=== PATIENT | female | born 1985 | race Caucasian/White ===

== ENCOUNTER 2016-08-20 03:25 | Inpatient (IN) | payer OTHER ==
[2016-08-20] MEDS ORDERED: Promethazine INJ(RESTRICTED)* 25 MG/ML 1 ML VIAL ONE (03:54)
[2016-08-20] MEDS ORDERED: Nalbuphine* 20 MG/ML 1 ML VIAL ONE (03:54)
[2016-08-20] MEDS ORDERED: fentaNYL* 50 MCG/ML 2 ML VIAL (100 MCG VIAL) ONE (04:18)
[2016-08-20] MEDS ORDERED: Nalbuphine* 20 MG/ML 1 ML VIAL IV PRN ×2 (04:19→04:35)
[2016-08-20] MEDS ORDERED: Promethazine INJ(RESTRICTED)* 25 MG/ML 1 ML VIAL IV PRN (04:19)
[2016-08-20 04:27] LABS: Hematocrit 42 % (35-47); Hemoglobin 13.7 g/dl (12.0-16.0); Mean Corpuscular HGB Conc 33 g/dl (31-36); Mean Corpuscular Hemoglobin 29 pg (27-31); Mean Corpuscular Volume 87 fL (80-97); Mean Platelet Volume 8 um3 (7.4-10.4); Red Blood Count 4.79 10^6/ul (4.0-5.4); Red Cell Distribution Width 14 % (10.5-15); White Blood Count 12.4 10^3/ul (3.5-10.8)
[2016-08-20] MEDS ORDERED: Ondansetron INJ* 2 MG/ML VIAL IV PRN (04:35)
[2016-08-20] MEDS ORDERED: Naloxone* 0.4 MG/ML 1 ML VIAL IV PRN (04:35)
[2016-08-20] MEDS ORDERED: Oxytocin in LR* 20 UNITS/1,000 ML BAG IVPB SCH ×2 (05:00→06:00)
[2016-08-20] MEDS ORDERED: Witch Hazel PAD* JAR TOPICAL PRN (05:58)
[2016-08-20] MEDS ORDERED: Dibucaine 1% 28.35 GM TUBE PR PRN (05:58)
[2016-08-20] MEDS ORDERED: Glycerin ADULT SUPP PR PRN (05:58)
[2016-08-20] MEDS ORDERED: oxyCODONE/Acetamin 5/325 MG* TAB PO PRN (05:58)
[2016-08-20] MEDS: Levothyroxine TAB* 100 MCG TAB PO SCH (08:04)
[2016-08-20] MEDS ORDERED: Simethicone CHEW TAB* 80 MG PO SCH (08:30)
[2016-08-20] MEDS: Docusate CAP* 100 MG PO SCH ×3 (09:55→20:15)
[2016-08-20] MEDS: Ibuprofen TAB* 600 MG PO PRN (20:12)
[2016-08-21] MEDS: Levothyroxine TAB* 75 MCG TAB PO SCH (06:49)
[2016-08-21] MEDS: Ibuprofen TAB* 600 MG PO PRN ×3 (06:49→20:22)
[2016-08-21] MEDS: Levothyroxine TAB* 100 MCG TAB PO SCH (06:49)
[2016-08-21] MEDS ORDERED: Ferrous Gluconate TAB* 324 MG TAB PO SCH (09:00)
[2016-08-21 10:05] LABS: Hematocrit 35 % (35-47); Hemoglobin 11.4 g/dl (12.0-16.0); Mean Corpuscular HGB Conc 33 g/dl (31-36); Mean Corpuscular Hemoglobin 29 pg (27-31); Mean Corpuscular Volume 88 fL (80-97); Mean Platelet Volume 8 um3 (7.4-10.4); Red Blood Count 3.94 10^6/ul (4.0-5.4); Red Cell Distribution Width 14 % (10.5-15); White Blood Count 9.7 10^3/ul (3.5-10.8)
[2016-08-21] MEDS: Docusate CAP* 100 MG PO SCH ×3 (10:26→20:22)
[2016-08-21] MEDS: Acetaminophen TAB* 325 MG PO PRN ×3 (10:30→23:12)
[2016-08-22] MEDS: Ibuprofen TAB* 600 MG PO PRN ×2 (04:04→10:42)
[2016-08-22] MEDS: Levothyroxine TAB* 100 MCG TAB PO SCH (06:01)
[2016-08-22] MEDS: Levothyroxine TAB* 75 MCG TAB PO SCH (06:01)
[2016-08-22 07:52] VITALS: BP 122/76
[2016-08-22] MEDS: Docusate CAP* 100 MG PO SCH (10:42)
== END 2016-08-22 11:32 | disposition home or self-care (01) | DRG 560 ==
LOC: MCHOBOUT 03:25 → MCHOB 03:35
PROVIDERS: ADMIT Obstetrics & Gynecology; ATTEND Obstetrics & Gynecology
PROC: 10E0XZZ Delivery of Products of Conception, External Approach (ICD-10-PCS; principal; 2016-08-20)
PROC: 10907ZC Drainage of Amniotic Fluid, Therapeutic from Products of Conception, Via Natural or Artificial Opening (ICD-10-PCS; 2016-08-20)
DX: O48.0 Post-term pregnancy (principal); O99.344 Other mental disorders complicating childbirth; E03.9 Hypothyroidism, unspecified; O99.824 Streptococcus B carrier state complicating childbirth; F31.9 Bipolar disorder, unspecified; O99.284 Endocrine, nutritional and metabolic diseases complicating childbirth; Z3A.40 40 weeks gestation of pregnancy; Z37.0 Single live birth
CPT/HCPCS: 36415; 85025; 86850; 86900; 86901; A9270-GY; J2300; J2550; J3010

== ENCOUNTER 2017-08-19 11:00 | Emergency (ER) | payer OTHER ==
--- OUTSIDE RECORDS SUMMARY | 2017-08-19 11:07 | XMS REPORT ---
:1985 External Reference #:[id number] Author Organization [facility] Address [address] [address] Phone [phone] Care Team Providers Name Role Phone Jose Hutton MD Primary Care Physician Unavailable Payers Type Date Identification Numbers Payment Provider Subscriber Commercial Policy Number: [id number] [employer] Maria Guadalupe Gan PayID: [id number] [address] [address] [place] [address] Problems Date Description Provider Status Onset: 03/11/2010 Moderate persistent asthma Bossman Forrester NP Active Onset: 08/03/2010 Hypothyroidism Jose Hutton Active GingerFACP Onset: 05/09/2012 Non-toxic multinodular goiter Jose Hutton Active Ginger,FACP Onset: 11/10/2010 Migraine without aura, not Jose Hutton Active refractory Ginger,FACP Onset: 05/09/2012 Bipolar disorder Jose Hutton Active Ginger,FACP Onset: 08/03/2010 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 Resolved Resolved: 05/13/2016 Family History Date Family Member(s) Problem(s) Comments General Diabetes General Hypertension General Cancer Social History Type Date Description Comments Marital Status Significant Other Occupation Nurse at [employer] Cigarette Use Never Smoked Cigarettes ETOH Use 12/06/2014 Denies alcohol use Recreational Drug Use Never Used Drugs Smoking Patient has never smoked General Hx Text 4 children Sexual Hx text sexually active Allergies, Adverse Reactions, Alerts Date Description Reaction Status Severity Comments 03/16/2010 Compazine active 08/16/2012 Imitrex active 12/06/2013 Adhesive Tape active Medications Medication Date Status Form Strength Qnty SIG Indications Ordering Provider Famotidine 08/11 Active Tablets 40mg 30tab take 1 tab R10.13 Zsofia s by mouth Ankit, every day at [facility] bedtime Tramadol HCL 07/06 Active Tablets 50mg 30tab 1-2 tablets M51.16 s every 12 D. Brennen, hours as M.D.,FACP needed for pain. Montelukast 07/06 Active Tablets 10mg 90tab take 1 Jose Sodium s tablet by Mike Hutton mouth once M.D.,FACP daily Levothyroxine 01/03 Active Tablets 112mcg 30tab 1 by mouth E03.9 Nohemy Piper s every day Mike Hutton M.D.,FACP Proventil HFA 05/09 Active Aerosol 108(90Bas 1unit 2 puffs by [place] /2013 e) s mouth every Yadav, mcg/Act 4 hours as [employer] needed Benadryl Active Capsules 25mg 1 by mouth Unknown /0000 every 6hr as needed Zyrtec Allergy Active Tablets 10mg 1 by mouth Unknown /0000 every day Vitamin C + D 00 Active Tablets 1 by mouth Unknown /0000 every day Active Tablets 1 by mouth Unknown Vitamin /0000 every day Meloxicam 07/06 Hx Tablets 7.5mg 60tab 1 -2 tablet M51.16 Rob s by mouth Hoa [employer] - once daily 08/07 as needed /2017 Zolmitriptan 10/20 Hx Tablets 2.5mg 6tabs 1 po qd prn migraine, Mike Hutton, - june repeat [facility] 02/20 once in hrs prn MDD2 Topiramate 10/20 Hx Tablets 50mg 180ta 0.5 tab by Jose /2016 bs mouth twice Mike Hutton, - a day for 1 M.DRefugio,FACP 02/20 week, then twice a day for 1 week, then 1.5 twice a day for 1 week, then 2 twice a day Levothyroxine 09/28 Hx Tablets 125mcg 15tab 1 by mouth E03.9 Jose Sodium /2016 s every day Elan Bliss M.D.,[facility] 01/03 Amoxicillin 05/13 Hx Capsules 500mg 30cap 1 tablet by J00 Bossman s mouth every [place], - 8 hours x 10 [employer] Omeprazole 02/[address] 20mg 30cap 1 by mouth s every day Elan Bliss M.D.,[facility] 05/13 Levothyroxine 12/16 Hx Tablets 175mcg 30tab 1 by mouth E03.9 Bossman Sodium /2015 s every day [place], - (cancel all [employer] 09/28 previous doses L-thyroxine) Levothyroxine 11/29 Hx Tablets 150mcg 90tab 1 by mouth E03.9 Jose Sodium /2015 s every day Elan Bliss M.D.,[facility] 12/16 Levothyroxine 11/05 Hx Tablets 100mcg 1 by mouth Jose Sodium /2015 every day Elan Bliss M.D.,[facility] 11/29 Levothyroxine 11/05 Hx Tablets 50mcg 90tab 1 by mouth E03.9 Jose Sodium /2015 s every day Elan Bliss M.D.,[facility] 11/29 Tramadol HCL 09/17 Hx Tablets 50mg 60tab four times a Jose s day as Elan Bliss needed Ginger,[facility] 02/11 Azithromycin 05/03 Hx Tablets 250mg 6tabs 2 tabs by J20.9 Bossman mouth on day [place], - 1; 1 tab by [employer] 03/19 mouth every day on days 2-5 Azithromycin 10/28 Hx Tablets 250mg 6tabs 2 tabs by 465.8 mouth on day Yazan, [employer] - one followed 01/13 by 1 tab daily for the last 4 days Montelukast 10/01 Hx Tablets 10mg 30tab take 1 L50.1 Jose Sodium s tablet by Mike Hutton, - mouth once M.D.,FACP 02/22 daily Guaifenesin ac 07/31 Hx Syrup 100-10mg/ 180ml 1 teaspoon 784.1 5ML by mouth Yazan, [employer] - every 4-6 08/12 hours needed cough Carafate 07/25 Hx Suspension 1GM/10ML 480un 2 teaspoon 575.0 its by mouth Mike Hutton, - four times a M.D.,FACP 01/13 day needed Ibuprofen 12/16 Hx Tablets 600mg 60tab 1 tablet M25.531 Bossman s every 6 Maur[place], - hours as [employer] 05/13 needed for pain Zyrtec Allergy 10/23 Hx Tablets 10mg 90tab 1 tab po qhs 493.92 s [place] [facility] - 04/14 Imitrex 05/09 Hx Tablets 100mg 9tabs take 1 346.10 Jose tablet and Mike Hutton, - june repeat 1 M.D.,[facility] 08/16 tablet in hours max of 2 per day Ibuprofen 05/09 Hx Tablets 600mg 60tab tid prn 346.10 Jsoe s Mike Hutton, - M.D.,[facility] 12/16 Levothyroxine 05/09 Hx Tablets 88mcg 30tab Take 1 Jose Sodium s Tablet By Mike Hutton, - Mouth Every M.D.,[facility] Acetaminophen 11/09 Hx Tablets 325mg 100ta 1 to 2 tab 346.10 Danielle bs po every 4-6 Lakisha, - hours, max 4 N.P. 05/09 grams Amoxicillin 06/07 Hx Capsules 500mg 14cap take 1 382.9 Joy s capsule by [place]-W - mouth 2 atson, 06/23 times a day N.P. /2011 for 7 days for infection Lexapro 11/29 Hx Tablets 10mg 30tab Take 1 s Tablet Every DRefugio Hutton - Danika Miles,[facility] 03/15 Fluticasone 11/10 Hx Suspension 50mcg/Act 1bott 1 spray each 381.04 le nostril in Mike Hutton - am Ginger,[facility] 05/19 Cetirizine HCL 11/10 Hx Tablets 10mg 30tab 1 po qd prn 381.04 Elan Mueller M.D.,[facility] 03/15 Ibuprofen 11/10 Hx Tablets 600mg 90tab PO tid prn 346.10 Elan Mueller M.D.,[facility] 11/09 Levothyroxine 08/03 Hx Tablets 75mcg 30tab 1 tab qam Joy Sodium s Louie-W - atson, 05/09 N.P. /2012 Lexapro 05/18 Hx Tablets 10mg 30tab 1 po every 301.4 s day Elan Bliss M.D.,[facility] 11/10 Ondansetron HCL 03/16 Hx Solution 4mg/2ML Danielle Ansari M.D. 11/10 Levothyroxine 03/16 Hx Tablets 25mcg 30tab 2 and 3 tabs Dylan Sodium s alternating Danielle german M.D. 08/03 Proventil HFA 03/16 Hx Aerosol 108(90Bas 1mont 2 puffs po q e) mcg/ac turner 4 hours prn Elan Bliss M.D.,[facility] 05/09 Advair Diskus 03/16 Hx Aerosol 100-50mcg 60uni 1 inhalation Bossman /2010 /Dose ts twice daily [place], - [employer] 05/13 03/16 Hx Tablets 100ta 1 po qd bs Danielle Ansari M.D. 03/15 Tylenol/Codeine 01/25 Hx Tablets 300-30mg 60tab 1 q 8 h prn 346.10 Yuniel oHran #3 Elan Rothman M.D.,FACP 11/10 00 Hx Tablets 100ta 1 po every Unknown Multivitamin-Ul /0000 bs day tra - 05/09 Albuterol Hx Nebulizer 1.25mg/3M 100un four times a [place] Sulfate /0000 L its day as Yadav, - needed [employer] 02/22 Levothyroxine Hx Tablets 188mcg 1 by mouth Unknown Sodium /0000 every day - 11/05 Cipro Hx Tablets 500mg 1 by mouth Unknown /0000 twice a day - 07/[address] 20mg 1 by mouth Unknown Sodium /0000 every day - 01/13 Medications Administered in Office Medication Date Status Form Strength Qnty SIG Indications Ordering Provider Depomedrol Administered Injection [place] 40MG Aj Estrada M.D. PPD Administered Injection Unknown 017 PPD Administered Injection Unknown 016 PPD Administered Injection Bossman 016 [place], [employer] Influenza,Uns Administered Injection Unknown pecified 015 PPD Administered Injection Bossman 015 [place], [employer] PPD Administered Injection Nurse Visit 013 [place] PPD Administered Injection Nurse Visit 013 [place] Immunizations CPT Code Status Date Vaccine Reaction Lot # [id number] Given 12/17/2015 Pneumonia Vaccine [id number] 17584 Given 12/09/2015 Influenza Virus Vaccine, no reaction noted ... [id number] Quadrivalent, Split Virus, [place] [address] Given 12/10/2014 Influenza Virus Vaccine, [id number] Quadrivalent, Split, Preservative Free [id number] Given 12/08/2012 Flu Vaccine Split Virus Preservative Free For Indiv 3Yr Older 30802 Given 10/08/2012 Measles Mumps And Rubella [id number] MMR 76946 Given 11/10/2011 Flu Vaccine Split Virus Preservative Free For Indiv 3Yr Older 23912 Given 11/10/2010 Influenza Virus 3Yrs & Over [id number] 63698 Given 10/08/2010 Tdap - Tetanus/Diptheria/Acellular Pertussis 91968 Given 10/08/2010 Measles Mumps And Rubella MMR Vital Signs Date Vital Result Comment 08/11/2017 Height 65 inches 5'5" Weight 172.00 lb Heart Rate 91 /min BP Systolic Sitting 118 mmHg BP Diastolic Sitting 68 mmHg Body Temperature 99.0 F Pain Level 98 BMI (Body Mass Index) 28.6 kg/m2 07/06/2017 Height 65 inches 5'5" Weight 168.00 lb Heart Rate 84 /min BP Systolic 118 mmHg BP Diastolic 68 mmHg Body Temperature 98.0 F O2 % BldC Oximetry 98 % BMI (Body Mass Index) 28.0 kg/m2 02/22/2017 Height 65 inches 5'5" Weight 159.00 lb Heart Rate 98 /min BP Systolic Sitting 100 mmHg BP Diastolic Sitting 72 mmHg Body Temperature 98.3 F O2 % BldC Oximetry 99 % BMI (Body Mass Index) 26.5 kg/m2 10/20/2016 Heart Rate 79 /min BP Systolic Sitting 100 mmHg BP Diastolic Sitting 66 mmHg Body Temperature 97.2 F O2 % BldC Oximetry 98 % 08/01/2016 Height 65 inches 5'5" Weight 184.00 lb Respiratory Rate 16 /min Body Temperature 97.7 F Pain Level 0 BMI (Body Mass Index) 30.6 kg/m2 05/13/2016 Weight 184.00 lb Heart Rate 90 /min BP Systolic Sitting 118 mmHg BP Diastolic Sitting 72 mmHg Body Temperature 99.0 F O2 % BldC Oximetry 99 % 02/12/2016 Weight 173.00 lb Heart Rate 74 /min BP Systolic Sitting 108 mmHg BP Diastolic Sitting 64 mmHg Body Temperature 98.4 F O2 % BldC Oximetry 98 % 12/17/2015 Weight 168.00 lb Heart Rate 111 /min BP Systolic Sitting 125 mmHg BP Diastolic Sitting 79 mmHg Body Temperature 97.9 F O2 % BldC Oximetry 98 % 11/03/2015 Height 64.5 inches 5'4.50" Weight 165.75 lb Heart Rate 103 /min BP Systolic 116 mmHg BP Diastolic 81 mmHg Body Temperature 99.6 F O2 % BldC Oximetry 97 % BMI (Body Mass Index) 28.0 kg/m2 09/18/2015 Height 64.5 inches 5'4.50" Weight 169.00 lb Heart Rate 77 /min BP Systolic 112 mmHg BP Diastolic 72 mmHg Body Temperature 97.8 F O2 % BldC Oximetry 98 % BMI (Body Mass Index) 28.6 kg/m2 09/10/2015 Height 64.5 inches 5'4.50" Weight 173.00 lb Heart Rate 87 /min BP Systolic 112 mmHg BP Diastolic 73 mmHg BMI (Body Mass Index) 29.2 kg/m2 08/25/2015 Height 64.5 inches 5'4.50" Weight 173.12 lb Heart Rate 88 /min BP Systolic Sitting 98 mmHg BP Diastolic Sitting 62 mmHg Body Temperature 97.8 F O2 % BldC Oximetry 97 % BMI (Body Mass Index) 29.3 kg/m2 07/10/2015 Height 64.5 inches 5'4.50" Weight 179.00 lb Heart Rate 84 /min BP Systolic Sitting 112 mmHg BP Diastolic Sitting 80 mmHg Body Temperature 97.6 F O2 % BldC Oximetry 98 % BMI (Body Mass Index) 30.2 kg/m2 05/04/2015 Height 64.5 inches 5'4.50" Weight 172.00 lb Heart Rate 77 /min BP Systolic Sitting 108 mmHg BP Diastolic Sitting 78 mmHg Body Temperature 98.8 F O2 % BldC Oximetry 98 % BMI (Body Mass Index) 29.1 kg/m2 01/28/2015 Weight 161.00 lb Heart Rate 75 /min BP Systolic Sitting 108 mmHg BP Diastolic Sitting 59 mmHg Body Temperature 97.9 F 01/13/2015 Height 64.5 inches 5'4.50" Weight 161.00 lb Heart Rate 88 /min BP Systolic 90 mmHg BP Diastolic 60 mmHg Body Temperature 99.0 F O2 % BldC Oximetry 98 % BMI (Body Mass Index) 27.2 kg/m2 10/28/2014 Weight 160.00 lb Heart Rate 90 /min BP Systolic Sitting 96 mmHg BP Diastolic Sitting 64 mmHg Body Temperature 98.0 F O2 % BldC Oximetry 98 % 10/01/2014 Weight 163.25 lb Heart Rate 93 /min BP Systolic Sitting 100 mmHg BP Diastolic Sitting 62 mmHg Body Temperature 98.8 F O2 % BldC Oximetry 98 % 07/31/2014 Weight 166.00 lb Heart Rate 93 /min BP Systolic Sitting 96 mmHg BP Diastolic Sitting 64 mmHg Body Temperature 98.3 F O2 % BldC Oximetry 98 % 07/25/2014 Height 64.50 inches 5'4.50" Weight 165.00 lb Heart Rate 80 /min BP Systolic Sitting 117 mmHg BP Diastolic Sitting 79 mmHg Body Temperature 98.2 F O2 % BldC Oximetry 99 % BMI (Body Mass Index) 27.9 kg/m2 07/10/2014 Height 64.50 inches 5'4.50" Weight 171.50 lb Heart Rate 66 /min BP Systolic Sitting 112 mmHg BP Diastolic Sitting 62 mmHg Body Temperature 97.9 F Pain Level 7 O2 % BldC Oximetry 98 % BMI (Body Mass Index) 29.0 kg/m2 04/14/2014 Height 64.50 inches 5'4.50" Weight 168.25 lb Heart Rate 79 /min BP Systolic Sitting 102 mmHg BP Diastolic Sitting 68 mmHg Body Temperature 97.3 F O2 % BldC Oximetry 99 % BMI (Body Mass Index) 28.4 kg/m2 12/24/2013 Height 64.50 inches 5'4.50" Weight 159.00 lb Heart Rate 76 /min BP Systolic Sitting 104 mmHg BP Diastolic Sitting 72 mmHg Body Temperature 97.5 F BMI (Body Mass Index) 26.9 kg/m2 12/16/2013 Height 64.50 inches 5'4.50" Weight 157.50 lb Heart Rate 60 /min BP Systolic Sitting 102 mmHg BP Diastolic Sitting 60 mmHg Body Temperature 98.5 F O2 % BldC Oximetry 99 % BMI (Body Mass Index) 26.6 kg/m2 12/06/2013 Weight 157.50 lb Heart Rate 94 /min BP Systolic Sitting 120 mmHg BP Diastolic Sitting 64 mmHg Body Temperature 98.1 F Pain Level 4 took 2 tramadol O2 % BldC Oximetry 96 % 10/23/2013 Weight 155.00 lb Heart Rate 77 /min BP Systolic Sitting 106 mmHg auto cuff BP Diastolic Sitting 68 mmHg auto cuff Body Temperature 98.3 F 09/17/2013 Weight 165.00 lb Heart Rate 84 /min BP Systolic Sitting 110 mmHg BP Diastolic Sitting 60 mmHg Body Temperature 98.5 F 09/13/2012 Height 64.5 inches 5'4.50" Weight 156.75 lb Heart Rate 76 /min BP Systolic Sitting 98 mmHg BP Diastolic Sitting 54 mmHg BMI (Body Mass Index) 26.5 kg/m2 08/16/2012 Height 64.5 inches 5'4.50" Weight 160.50 lb Heart Rate 85 /min BP Systolic Sitting 112 mmHg BP Diastolic Sitting 70 mmHg Body Temperature 98.6 F O2 % BldC Oximetry 99 % BMI (Body Mass Index) 27.1 kg/m2 05/09/2012 Height 64.5 inches 5'4.50" Weight 171.00 lb Heart Rate 76 /min BP Systolic Sitting 110 mmHg BP Diastolic Sitting 68 mmHg BMI (Body Mass Index) 28.9 kg/m2 11/10/2011 Height 65.5 inches 5'5.50" Weight 192.00 lb Heart Rate 80 /min BP Systolic Sitting 120 mmHg BP Diastolic Sitting 80 mmHg Body Temperature 98.2 F BMI (Body Mass Index) 31.5 kg/m2 06/24/2011 Weight 161.00 lb Heart Rate 86 /min BP Systolic Sitting 110 mmHg BP Diastolic Sitting 68 mmHg 06/08/2011 Height 64 inches 5'4" Weight 158.00 lb Heart Rate 86 /min BP Systolic Sitting 110 mmHg BP Diastolic Sitting 74 mmHg Body Temperature 97.9 F lt ear BMI (Body Mass Index) 27.1 kg/m2 05/20/2011 Height 64 inches 5'4" Weight 155.00 lb Heart Rate 86 /min BP Systolic Sitting 102 mmHg BP Diastolic Sitting 60 mmHg BMI (Body Mass Index) 26.6 kg/m2 03/15/2011 Height 64 inches 5'4" Weight 157.00 lb Heart Rate 80 /min BP Systolic Sitting 100 mmHg BP Diastolic Sitting 60 mmHg BMI (Body Mass Index) 26.9 kg/m2 11/10/2010 Height 64 inches 5'4" Weight 165.00 lb Heart Rate 62 /min BP Systolic Sitting 118 mmHg BP Diastolic Sitting 62 mmHg Body Temperature 98.1 F BMI (Body Mass Index) 28.3 kg/m2 08/03/2010 Height 64 inches 5'4" Weight 173.00 lb Heart Rate 92 /min BP Systolic Sitting 116 mmHg BP Diastolic Sitting 70 mmHg BMI (Body Mass Index) 29.7 kg/m2 05/18/2010 Height 64 inches 5'4" Weight 152.00 lb Heart Rate 84 /min BP Systolic Sitting 110 mmHg BP Diastolic Sitting 50 mmHg BMI (Body Mass Index) 26.1 kg/m2 03/16/2010 Height 64 inches 5'4" Weight 146.00 lb Heart Rate 95 /min BP Systolic Sitting 98 mmHg BP Diastolic Sitting 58 mmHg Body Temperature 95.1 F O2 % BldC Oximetry 98 % BMI (Body Mass Index) 25.1 kg/m2 Results Test Date Test Result H/L Range Note Laboratory test finding 07/05/2017 TSH (Thyroid Stim 0.86 mcIU/mL 0.34- 5.60 Horm) Thyroid Function 12/29/2016 Thyroid Stim 0.08 mIU/L 0.3-4.2 1 Buna Hormone Free T4 1.7 ng/dL 0.9 - 1.7 2 Total T3 103 ng/dL 80 - 200 3 Laboratory test finding 09/16/2016 TSH (Thyroid Stim 0.05 mcIU/mL Low 0.34 -5.60 Horm) Free T4 (Free Thyroxine) 1.47 ng/dL High 0.61-1.12 Laboratory test finding 04/22/2016 TSH (Thyroid Stim Horm) 0.36 mcIU/mL 0.34-5.60 4 Free T4 (Free Thyroxine) 0.98 ng/dL 0.61-1.12 5 Laboratory test finding 03/18/2016 TSH (Thyroid Stim 0.04 mcIU/mL Low 0.34 -5.60 6 Horm) Free T4 (Free Thyroxine) 1.12 ng/dL 0.61-1.12 7 Laboratory test finding 01/25/2016 TSH (Thyroid Stim 0.21 mcIU/mL Low 0.34 -5.60 Horm) Free T4 (Free Thyroxine) 0.83 ng/dL 0.61-1.12 Urine Culture And 01/08/2016 Urine Culture SEE RESULT BELOW 8, 9 Sensitivities GC/Chlamydia Amplified 01/08/2016 Chlamydia Negative Negative 8 Rna trachomatis Rna Neisseria gonorrhoeae (GC) Rna Negative Negative 8 Laboratory test finding 01/08/2016 HPV Rna Ww/Reflex POSITIVE Negative 8 , 10 Genotype Cytology SEE RESULT BELOW 8, 11 HPV 16, 18/45 Genotype 01/08/2016 HPV 16 Genotype Positive Negative 8 HPV 18/45 Genotype Negative Negative 8 Laboratory test finding 12/19/2015 TSH (Thyroid Stim 0.04 mcIU/mL Low 0.34 -5.60 Horm) Free T4 (Free Thyroxine) 1.87 ng/dL High 0.61-1.12 Laboratory test finding 12/19/2015 HCG 5163.00 mIU/mL 12 Total Protein 24HR Urine 12/19/2015 Urine Collection Time 24 13 Urine Total Volume 1850 mL 13 Urine Random Total Protein 10 mg/dL 13 Urine Total Protein/24HR 185 mg/24Hr High 0-165 13 Ua Routine 12/17/2015 Ua Specific [place] 1.020 Ua PH 6 Ua Color yellow Ua Appera clear Ua WBC neg Ua Protein trace Ua Glucose normal Ua Ketones neg Ua Bilirubin neg Ua Urobilinogen normal Ua Nitrite neg Ua Occult Blood trace Laboratory test 12/13/2015 TSH (Thyroid 0.32 mcIU/mL Low 0.34-5.60 14, 15 finding Stim Horm) Urine Culture And 12/13/2015 Urine Culture SEE RESULT 16, 17 Sensitivities BELOW Hepatitis B [place] AB 11/05/2015 Hepatitis B Reactive Nonreactive Titer Surface AB Hep B Surf AB Level 20.02 mIU/mL <12 18 Laboratory test finding 11/05/2015 TSH (Thyroid Stim 0.06 mcIU/mL Low 0.34 -5.60 19 Horm) Free T4 (Free Thyroxine) 1.22 ng/dL High 0.61-1.12 20 Laboratory test 10/20/2015 Blood Culture SEE RESULT BELOW 21 finding CBC Auto Diff 10/20/2015 White Blood Count 14.5 10^3/uL High 3.5-10.8 Red Blood Count 4.67 10^6/uL 4.0-5.4 Hemoglobin 13.3 g/dL 12.0-16.0 Hematocrit 39 % 35-47 Mean Corpuscular Volume 84 fL 80-97 Mean Corpuscular Hemoglobin 28 pg 27-31 Mean Corpuscular HGB Conc 34 g/dL 31-36 Red Cell Distribution Width 13 % 10.5-15 Platelet Count 214 10^3/uL 150-450 Mean Platelet Volume 7 um3 Low 7.4-10.4 Abs Neutrophils 12.3 10^3/uL High 1.5-7.7 Abs Lymphocytes 0.9 10^3/uL Low 1.0-4.8 Abs Monocytes 1.1 10^3/uL High 0-0.8 Abs Eosinophils 0.1 10^3/uL 0-0.6 Abs Basophils 0 10^3/uL 0-0.2 Abs Nucleated RBC 0.01 10^3/uL Granulocyte % 85.1 % High 38-83 Lymphocyte % 6.3 % Low 25-47 Monocyte % 7.9 % 1-9 Eosinophil % 0.6 % 0-6 Basophil % 0.1 % 0-2 Nucleated Red Blood Cells % 0.1 Comp Metabolic Panel 10/20/2015 Sodium 136 mmol/L 133-145 Potassium 3.5 mmol/L 3.5-5.0 Chloride 102 mmol/L 101-111 Co2 Carbon Dioxide 26 mmol/L 22-32 Anion Gap 8 mmol/L 2-11 Glucose 127 mg/dL High 70-100 Blood Urea Nitrogen 9 mg/dL 6-24 Creatinine 0.70 mg/dL 0.51-0.95 BUN/Creatinine Ratio 12.9 8-20 Calcium 9.2 mg/dL 8.6-10.3 Total Protein 7.4 g/dL 6.4-8.9 Albumin 4.1 g/dL 3.2-5.2 Globulin 3.3 g/dL 2-4 Albumin/Globulin Ratio 1.2 1-3 Total Bilirubin 2.40 mg/dL High 0.2-1.0 Alkaline Phosphatase 67 U/L 34-104 Alt 29 U/L 7-52 Ast 17 U/L 13-39 Egfr Non- 97.6 >60 Egfr 125.5 >60 22 Laboratory test finding 10/20/2015 Lipase 13 U/L 11.0-82.0 C Reactive Protein 143.77 mg/L High < 5.00 23 HCG < 0.60 mIU/mL 24 Laboratory test 10/20/2015 Lactic Acid 0.8 mmol/L 0.5-2.0 25 finding Laboratory test 10/20/2015 Rapid Strep Negative Negative 26 finding Molecular Laboratory test 10/20/2015 Rapid Strep A SEE RESULT BELOW 27 finding Urinalysis Profile 10/20/2015 Urine Color Aura Urine Appearance Cloudy Urine Specific [place] 1.025 1.010-1.030 Urine pH 6.0 5-9 Urine Urobilinogen Negative Negative Urine Ketones Trace Negative Urine Protein 1+(30 mg/dL) Negative Urine Leukocytes Negative Negative Urine Blood Negative Negative * * Negative 28 Urine Nitrite Negative Negative Urine Bilirubin Negative Negative Urine Glucose Negative Negative Urine White Blood Cell Trace(0-5/hpf) Absent Urine Red Blood Cell 3+(>10/hpf) Absent Urine Bacteria Absent Absent Urine Squamous Epithelial Cell Present Absent Urine Culture And 10/20/2015 Urine Culture SEE RESULT BELOW 29 Sensitivities Laboratory test 01/13/2015 Culture Strep Group negative finding A Throat Laboratory test 01/13/2015 Culture Throat SEE RESULT BELOW 30 finding Laboratory test 07/31/2014 Culture Throat SEE RESULT BELOW 31 finding Laboratory test 07/31/2014 Rapid Group A Strep neg finding Laboratory test 07/10/2014 TSH (Thyroid 4.94 ?IU/mL 0.34-5.60 finding Stimulating Horm) Laboratory test 07/10/2014 Urine Culture SEE RESULT BELOW 32 finding GC/Chlamydia Amplified 07/10/2014 Chlamydia Negative Negative Rna trachomatis Rna Neisseria gonorrhoeae (GC) Rna Negative Negative 33 Liver Function Panel 07/10/2014 Direct Bilirubin 0.20 mg/dL High 0.03- 0.18 Indirect Bilirubin 1.0 mg/dL 0.3-1.0 CBC Auto Diff 07/10/2014 White Blood Count 10.2 10^3/uL 4.8-10.8 Red Blood Count 4.73 10^6/uL 4.0-5.4 Hemoglobin 13.9 g/dL 12.0-16.0 Hematocrit 42 % 35-47 Mean Corpuscular Volume 88 fL 80-97 Mean Corpuscular Hemoglobin 29 pg 27-31 Mean Corpuscular HGB Conc 33 g/dL 31-36 Red Cell Distribution Width 13 % 10.5-15 Platelet Count 264 10^3/uL 150-450 Mean Platelet Volume 7 um3 Low 7.4-10.4 Abs Neutrophils 6.7 10^3/uL 1.5-7.7 Abs Lymphocytes 2.6 10^3/uL 1.0-4.8 Abs Monocytes 0.7 10^3/uL 0-0.8 Abs Eosinophils 0.2 10^3/uL 0-0.6 Abs Basophils 0.1 10^3/uL 0-0.2 Abs Nucleated RBC 0.01 10^3/uL Granulocyte % 65.9 % 38-83 Lymphocyte % 25.5 % 25-47 Monocyte % 6.5 % 1-9 Eosinophil % 1.6 % 0-6 Basophil % 0.5 % 0-2 Nucleated Red Blood Cells % 0.1 Laboratory test finding 07/10/2014 Lipase 39 U/L 11.0-82.0 Comp Metabolic Panel 07/10/2014 Sodium 140 mmol/L 133-145 Potassium 3.9 mmol/L 3.5-5.0 Chloride 107 mmol/L 101-111 Co2 Carbon Dioxide 26 mmol/L 22-32 Anion Gap 7 mmol/L 2-11 Glucose 81 mg/dL 70-100 Blood Urea Nitrogen 8 mg/dL 6-24 Creatinine 0.80 mg/dL 0.51-0.95 BUN/Creatinine Ratio 10.0 8-20 Calcium 9.2 mg/dL 8.6-10.3 Total Protein 7.1 g/dL 6.4-8.9 Albumin 4.5 g/dL 3.2-5.2 Globulin 2.6 g/dL 2-4 Albumin/Globulin Ratio 1.7 1-3 Total Bilirubin 1.20 mg/dL High 0.2-1.0 Alkaline Phosphatase 63 U/L 34-104 Alt 13 U/L 7-52 Ast 15 U/L 13-39 Egfr Non- 84.8 >60 Egfr 109.1 >60 34 Celiac Panel 07/10/2014 Tissue Transglutaminase IgA Ab <1.2 U/mL 35 Immunoglobulin A 318 mg/dL 61 - 356 Celiac Interpretation See Comment 36 CBC Auto Diff 07/10/2014 White Blood Count 14.5 10^3/uL High 4.8-10.8 Red Blood Count 5.03 10^6/uL 4.0-5.4 Hemoglobin 14.6 g/dL 12.0-16.0 Hematocrit 44 % 35-47 Mean Corpuscular Volume 87 fL 80-97 Mean Corpuscular Hemoglobin 29 pg 27-31 Mean Corpuscular HGB Conc 34 g/dL 31-36 Red Cell Distribution Width 13 % 10.5-15 Platelet Count 277 10^3/uL 150-450 Mean Platelet Volume 7 um3 Low 7.4-10.4 Abs Neutrophils 9.9 10^3/uL High 1.5-7.7 Abs Lymphocytes 3.3 10^3/uL 1.0-4.8 Abs Monocytes 1.1 10^3/uL High 0-0.8 Abs Eosinophils 0.2 10^3/uL 0-0.6 Abs Basophils 0.1 10^3/uL 0-0.2 Abs Nucleated RBC 0.01 10^3/uL Granulocyte % 68.1 % 38-83 Lymphocyte % 22.5 % Low 25-47 Monocyte % 7.4 % 1-9 Eosinophil % 1.4 % 0-6 Basophil % 0.6 % 0-2 Nucleated Red Blood Cells % 0.1 Comp Metabolic Panel 07/10/2014 Sodium 137 mmol/L 133-145 Potassium 3.3 mmol/L Low 3.5-5.0 Chloride 106 mmol/L 101-111 Co2 Carbon Dioxide 23 mmol/L 22-32 Anion Gap 8 mmol/L 2-11 Glucose 104 mg/dL High 70-100 Blood Urea Nitrogen 12 mg/dL 6-24 Creatinine 0.83 mg/dL 0.51-0.95 BUN/Creatinine Ratio 14.5 8-20 Calcium 9.4 mg/dL 8.6-10.3 Total Protein 8.0 g/dL 6.4-8.9 Albumin 4.9 g/dL 3.2-5.2 Globulin 3.1 g/dL 2-4 Albumin/Globulin Ratio 1.6 1-3 Total Bilirubin 1.20 mg/dL High 0.2-1.0 Alkaline Phosphatase 64 U/L 34-104 Alt 14 U/L 7-52 Ast 16 U/L 13-39 Egfr Non- 81.3 >60 Egfr 104.5 >60 37 Laboratory test finding 07/10/2014 Lipase 30 U/L 11.0-82.0 C Reactive Protein 10.49 mg/L High < 5.00 38 Lactic Acid 1.5 mmol/L 0.5-2.2 Laboratory test finding 07/10/2014 Serum Negative Negative 39 Urinalysis Profile 07/10/2014 Urine Color Yellow Urine Appearance Cloudy Urine Specific [place] 1.013 1.010-1.030 Urine pH 5.0 5-9 Urine Urobilinogen Negative Negative Urine Ketones Negative Negative Urine Protein Negative Negative Urine Leukocytes 3+ Negative Urine Blood 2+ Negative Urine Nitrite Positive Negative Urine Bilirubin Negative Negative Urine Glucose Negative Negative Urine White Blood Cell 3+(>20/hpf) Absent Urine Red Blood Cell 3+(>10/hpf) Absent Urine Bacteria 1+ Absent Urine Squamous Epithelial Cell Present Absent Laboratory test finding 04/14/2014 TSH (Thyroid Stimulating 0.36 IU/mL 0.34-5.60 Horm) Urinalysis Profile 12/05/2013 Urine Color Yellow Urine Appearance Cloudy Urine Specific [place] 1.004 Low 1.010-1.030 Urine pH 6.0 5-9 Urine Urobilinogen Negative Negative Urine Ketones Negative Negative Urine Protein Negative Negative Urine Leukocytes 2+ Negative Urine Blood Negative Negative Urine Nitrite Negative Negative Urine Bilirubin Negative Negative Urine Glucose Negative Negative Urine White Blood Cell 2+(11-20/hpf) Absent Urine Red Blood Cell 1+(3-5/hpf) Absent Urine Bacteria Absent Absent Urine Squamous Epithelial Cell Present Absent Urine Culture And 12/05/2013 Urine Culture (SEE NOTE) 40 Sensitivities CBC Auto Diff 12/05/2013 White Blood Count 6.8 10^3/uL 4.8-10.8 Red Blood Count 4.77 10^6/uL 4.0-5.4 Hemoglobin 14.0 g/dL 12.0-16.0 Hematocrit 41 % 35-47 Mean Corpuscular Volume 86 fL 80-97 Mean Corpuscular Hemoglobin 29 pg 27-31 Mean Corpuscular HGB Conc 34 g/dL 31-36 Red Cell Distribution Width 14 % 10.5-15 Platelet Count 232 10^3/uL 150-450 Mean Platelet Volume 7 um3 Low 7.4-10.4 Abs Neutrophils 4.8 10^3/uL 1.5-7.7 Abs Lymphocytes 1.5 10^3/uL 1.0-4.8 Abs Monocytes 0.4 10^3/uL 0-0.8 Abs Eosinophils 0.1 10^3/uL 0-0.6 Abs Basophils 0 10^3/uL 0-0.2 Abs Nucleated RBC 0 10^3/uL Granulocyte % 69.7 % 38-83 Lymphocyte % 21.7 % Low 25-47 Monocyte % 6.5 % 1-9 Eosinophil % 1.4 % 0-6 Basophil % 0.7 % 0-2 Nucleated Red Blood Cells % 0 Comp Metabolic Panel 12/05/2013 Sodium 139 mmol/L 133-145 Potassium 3.7 mmol/L 3.7-5.6 Chloride 107 mmol/L 101-111 Co2 Carbon Dioxide 28 mmol/L 22-32 Anion Gap 4 mmol/L 2-11 Glucose 92 mg/dL 70-100 Blood Urea Nitrogen 7 mg/dL 6-24 Creatinine 0.76 mg/dL 0.51-0.95 BUN/Creatinine Ratio 9.2 8-20 Calcium 9.3 mg/dL 8.6-10.3 Total Protein 7.2 g/dL 6.4-8.9 Albumin 4.6 g/dL 3.2-5.2 Globulin 2.6 g/dL 2-4 Albumin/Globulin Ratio 1.8 1-3 Total Bilirubin 1.00 mg/dL 0.2-1.0 Alkaline Phosphatase 55 U/L 34-104 Alt 14 U/L 7-52 Ast 17 U/L 13-39 Egfr Non- 90.0 >60 Egfr 115.7 >60 41 Laboratory test finding 12/05/2013 Serum Negative Negative 42 Type & Screen 12/05/2013 Patient Blood Type O Positive Antibody Screen NEGATIVE Urine Culture And 10/23/2013 Urine Culture (SEE NOTE) 43 Sensitivities Laboratory test finding 09/17/2013 TSH (Thyroid 0.07 IU/mL Low 0.34-5.60 Stimulating Horm) Free T4 1.57 ng/mL High 0.61-1.12 Free T3 4.00 pg/mL High 2.5-3.9 Laboratory test finding 09/17/2013 Throat Culture (SEE NOTE) 44 Laboratory test finding 09/17/2013 Rapid Strep A negative Laboratory test finding 10/08/2012 Test Urine negative Laboratory test finding 09/20/2012 Rubella Screen Equivocal Immune Rubeola Measles Igg AB 09/20/2012 Rubeola (Measles) IgG Positive 45 Antibody Rubeola IgG Antibody Index 1.2 46 Varicella Zoster Igg AB 09/20/2012 Varicella-Zoster IgG Antibody Positive 47 Varicella IgG Antibody Index 4.0 48 Mumps Igg 09/20/2012 Mumps Virus IgG Antibody Positive 49 Mumps IgG Antibody Index 1.4 50 Laboratory test finding 08/16/2012 Throat Beta Strep (SEE NOTE) 51 Culture Laboratory test finding 08/16/2012 Rapid Strep A negative Laboratory test finding 02/22/2012 TSH (Thyroid Stimulating 3.82 miu/mL 0.34-5.60 Horm) Free T4 0.86 ng/mL 0.61-1.24 Laboratory test finding 11/01/2011 TSH 1.86 MIU/ML 0.34-5.60 Thyroxine Free 0.55 ng/dL Low 0.61-1.24 Laboratory test finding 06/24/2011 TSH 2.12 MIU/ML 0.34-5.60 Thyroxine Free 0.84 ng/dL 0.61-1.24 Laboratory test finding 03/15/2011 Thyroxine Free 0.91 ng/dL 0.61-1.24 TSH 1.12 MIU/ML 0.34-5.60 Surgical Pathology 11/12/2010 Surgical Pathology <SEE 52 NOTE> Laboratory test 08/03/2010 Thyroxine Free 0.62 ng/dL 0.61-1.2 finding 4 TSH 2.07 MIU/ML 0.34-5.60 Laboratory test finding 06/15/2010 Thyroxine Free 0.79 ng/dL 0.61-1.24 TSH 1.14 MIU/ML 0.34-5.60 Laboratory test finding 05/18/2010 Thyroxine Free 0.70 ng/dL 0.61-1.24 TSH 2.44 MIU/ML 0.34-5.60 1 Test Performed by: [facility] - [address] [address] 2 Test Performed by: [facility] [place] [address] 3 Test Performed by: [facility] - [address] [address] 4 PRN VALID 12/17/15-06/16/16 Q MONTHLY 5 PRN VALID 12/17/15-06/16/16 Q MONTHLY 6 PRN VALID 12/17/15-06/16/16 Q MONTHLY 7 PRN VALID 12/17/15-06/16/16 Q MONTHLY 8 [id number] 9 SEE RESULT BELOW Name: MARIA GUADALUPE PHAM : [address]: Shawn Pastrana MD Acct: [id number] Unit: [id number] AGE: 30 Location: [facility] Re01/08/16 SEX: F Status: REG REF SPEC: [id number] ALEXA: 01/08/16-5 [facility] [address]: Shawn Pastrana MD REQ: [id number] RECD: 01/08/162259 STATUS: COMP _ SOURCE: URINE SPDESC: ORDERED: Urine Culture COMMENTS: [id number] QUERIES: Urine Source: Random Procedure Result Reported Site Urine Culture Final 01/09/16- 1252 ML Organism 1 STREP GROUP B [place] Count 1-10,000 (Few) CFU/ML Susceptibility testing of penicillins and other B-lactams approved by FDA for treatment of Streptococcus pyogenes (Group A Strep) and Streptococcus agalactiae (Group B Strep) is not necessary for clinical purposes and need not be done routinely, since as with vancomycin, resistant strains have not been recognized. (CLSI X160-P58;p.66) Positive isolates will be saved for one week. Please call the Microbiology Laboratory if further susceptibility testing is needed. * ML - MAIN LAB ([facility]) . END OF REPORT * ML=Testing performed at Main Lab DEPARTMENT OF PATHOLOGY, [address] [place] [address] Byron Anthony M.D. Director [facility] # [id number] 10 The high-risk HPV types detected by the assay include: 16, 18, 31, 33, 35, 39, 45, 51, 52, 56, 58, 59, 66, and 68. 11 SEE RESULT BELOW Name: MARIA GUADALUPE PHAM : [address]: Shawn Pastrana MD Acct: [id number] Unit: [id number] AGE: 30 Location: [facility] Re01/08/16 SEX: F Status: REG REF SPEC: [id number] ALEXA: 01/08/16-1115 [facility] [address]: Shawn Pastrana MD REQ: [id number] RECD: 01/08/16 STATUS: SOUT _ ORDERED: IMAGE ANALYSIS, PAP SM PATH REV, HPV/Thin Prep, HPV 16/18 GENE COMMENTS: [id number] FINAL DIAGNOSIS EPITHELIAL CELL ABNORMALITIES Low grade squamous intraepithelial lesion (LSIL) A. Ectocervical/Endocervical Specimen Adequacy: Satisfactory of evaluation Transformation zone component identified Patient Information: HPV: High risk HPV RNA testing regardless of pap results. HPV 16/18 Genotype Reflex Actual Specimen Date: 01/08/16 LMP If Unknown: unknown ?: Y Post Menopausal?: N Hysterectomy?: Y Previous Abnormal Pap Smears?:N If Yes, enter Diagnosis: dysplasia Loop electrosurgical excision procedure, a few yrs ago per patient. Date Time Test Result Flag (u) Normal Range 01/08/16 1115 HPV RNA RFLX GE POSITIVE H Negative The high-risk HPV types detected by the assay include: 16, 18, 31, 33, 35, 39, 45, 51, 52, 56, 58, 59, 66, and 68. Signed (signature on file) Byron Anthony MD 1107 This Pap test was evaluated with the assistance of the iJigg.comPrep Test Imaging System. Due to cytologic findings at the central office technician microscope, comprehensive manual rescreening by a Lath Hand may be required. The Pap Smear is a screening test designed to aid in the detection of premalignant and malignant conditions of the uterine cervix. It is not a diagnostic procedure and should not be used as the sole means of detecting cervical cancer. Both false- positive and false- negative reports do occur. Depending on your risk status, a Pap smear should be obtained and evaluated every 1-3 years. END OF REPORT RUN DATE: 01/12/16 [facility] LAB LIVE PAGE 1 Patient: MARIA GUADALUPE PHAM [id number] (Continued) * ML=Testing performed at Main Lab DEPARTMENT OF PATHOLOGY, [address] [place] [address] Byron Anthony M.D. Director [facility] # [id number] 12 <5.0 Negative 5.0 - 25.0 Indeterminate (Repeat testing recommended after 72 hours) >25.0 Positive Perimenopausal women can display HCG levels of up to 20 mIU/mL 13 Collected from 12/18/15 1100 through 12/19/15 1100. 14 [id number] 15 [id number] 16 [id number] 17 SEE RESULT BELOW Name: MARIA GUADALUPE PHAM : [address]: Tessa Canseco Acct: [id number] Unit: [id number] AGE: 30 Location: [facility] Re12/13/15 SEX: F Status: DEP ER SPEC: [id number] ALEXA: 12/13/[address]: Tessa Moon DO REQ: [id number] RECD: 12/14/15 STATUS: [facility] DR: Jose Hutton MD _ SOURCE: URINE SPDESC: ORDERED: Urine Culture COMMENTS: [id number] Procedure Result Reported Site Urine Culture Final 12/15/15 0825 ML No Growth (<1,000 CFU/mL) * ML - MAIN LAB ([facility]) . END OF REPORT * ML=Testing performed at Main Lab DEPARTMENT OF PATHOLOGY, [address] [place] [address] Byron Anthony M.D. Director [facility] # [id number] 18 This assay does not differentiate between reactivity due to a vaccine-induced immune response or an immune response induced by infection with HBV. 19 Copy Result to: LILIANA POSADA ([id number]) 20 Copy Result to: LILIANA POSADA ([id number]) 21 SEE RESULT BELOW Name: MARIA GUADALUPE PHAM : [address]: Jose Jin MD Acct: [id number] Unit: [id number] AGE: 30 Location: ED Re10/20/15 SEX: F Status: DEP ER SPEC: [id number] ALEXA: 10/20/15 [facility] DR: Jose Jin MD REQ: [id number] RECD: 10/20/15 STATUS: [facility] DR: Jose Hutton MD _ SOURCE: BLOOD,VENO SPDESC: ORDERED: Blood Cult Procedure Result Reported Site Aerobic Culture Bottle Final 10/25/15- 818 ML No Growth Day 5 Anaerobic Culture Bottle Final 10/25/15- 818 ML No Growth Day 5 * ML - MAIN LAB ([facility]) . END OF REPORT * ML=Testing performed at Main Lab DEPARTMENT OF PATHOLOGY, [address] [place] [address] Byron Anthony M.D. Director [facility] # [id number] 22 Because ethnic data is not always readily available, this report includes an eGFR for both -Americans and non- Americans. The National Kidney Disease Education Program (NKDEP) does not endorse the use of the MDRD equation for patients that are not between the ages of 18 and 70, are , have extremes of body size, muscle mass, or nutritional status, or are non- or non-. According to the National Kidney Foundation, irrespective of diagnosis, the stage of the disease is based on the level of kidney function: Stage Description GFR(mL/min/1.73 m(2)) 1 Kidney damage with normal or decreased GFR 90 2 Kidney damage with mild decrease in GFR 60-89 3 Moderate decrease in GFR 30-59 4 Severe decrease in GFR 15-29 5 Kidney failure <15 (or dialysis) 23 Acute inflammation: >10.00 24 <5.0 Negative 5.0 - 25.0 Indeterminate (Repeat testing recommended after 72 hours) >25.0 Positive Perimenopausal women can display HCG levels of up to 20 mIU/mL 25 [facility] Severe Sepsis and Septic Shock Management Bundle Measure requires all lactic acids initially measuring >2.0 mmol/L be repeated. 26 [employer] Regenerator Operator: [id number] Gaudencio Hooker Due to the increased sensitivity of molecular testing, reflex cultures are no longer performed. 27 SEE RESULT BELOW Name: MARIA GUADALUPE PHAM : [address]: [facility] Acct: [id number] Unit: [id number] AGE: 30 Location: ED Re10/20/15 SEX: F Status: REG ER SPEC: [id number] ALEXA: 10/20/1545 [facility] DR: Monroe Zamarripa MD REQ: [id number] RECD: 10/20/15 STATUS: [facility] DR: [facility] Jose Hutton MD _ SOURCE: THROAT SPDESC: ORDERED: Strep A Request Procedure Result Reported Site Rapid Strep A Request Final 10/20/15- 0620 ML Specimen received for Rapid Strep A Molecular testing * ML - MAIN LAB ([facility]) . END OF REPORT * ML=Testing performed at Main Lab DEPARTMENT OF PATHOLOGY, [address] [place] [address] Byron Anthony M.D. Director [facility] # [id number] 28 *Ascorbic acid is present which may interfere with detection of blood. 29 SEE RESULT BELOW Name: MARIA GUADALUPE PHAM : [address]: Jose Jin MD Acct: [id number] Unit: [id number] AGE: 30 Location: ED Re10/20/15 SEX: F Status: DEP ER SPEC: [id number] ALEXA: 10/20/15 [facility] [address]: Monroe Zamarripa MD REQ: [id number] RECD: 10/20/15 STATUS: [facility] DR: [facility] Jose Hutton MD _ SOURCE: URINE SPDESC: ORDERED: Urine Culture QUERIES: Urine Source: Random Procedure Result Reported Site Urine Culture Final 10/21/15836 ML No growth of clinically significant organisms * ML - MAIN LAB ([facility]) . END OF REPORT * ML=Testing performed at Main Lab DEPARTMENT OF PATHOLOGY, [address] [place] [address] Byron Anthony M.D. Director [facility] # [id number] 30 SEE RESULT BELOW Name: MARIA GUADALUPE PHAM : [address]: Nohemy Hutton MD Acct: [id number] Unit: [id number] AGE: 29 Location: [facility] Re01/13/15 SEX: F Status: REG REF SPEC: [id number] ALEXA: 01/13/15-[address]: Jose Hutton MD REQ: [id number] RECD: 01/13/15 STATUS: COMP _ SOURCE: THROAT SPDESC: ORDERED: Throat Culture Procedure Result Reported Site Throat Culture Final 01/15/15- 0837 ML Organism 1 NORMAL LEW Quantity 2+ Throat cultures are clinically indicated to detect the presence of group A strep, arcanobacterium and yeast. In certain cases, predominating organisms will be reported. * ML - MAIN LAB ([facility]) . END OF REPORT * ML=Testing performed at Main Lab DEPARTMENT OF PATHOLOGY, [address] [place] [address] Byron Anthony M.D. Director [facility] # [id number] 31 SEE RESULT BELOW Name: MARIA GUADALUPE PHAM : [address]: Rayray Hand NP Acct: [id number] Unit: [id number] AGE: 29 Location: [facility] Re07/31/14 SEX: F Status: REG REF SPEC: [id number] ALEXA: 07/31/14-[address]: Rayray Hand NP REQ: [id number] RECD: 07/31/14 STATUS: COMP _ SOURCE: THROAT SPDESC: ORDERED: Throat Culture Procedure Result Verified Site Throat Culture Final 08/02/14- 0856 ML Organism 1 NORMAL LEW Quantity 2+ Throat cultures are clinically indicated to detect the presence of group A strep, arcanobacterium and yeast. In certain cases, predominating organisms will be reported. * ML - MAIN LAB ([facility]) . END OF REPORT * ML=Testing performed at Main Lab DEPARTMENT OF PATHOLOGY, [address] [place] [address] Byron Anthony M.D. Director [facility] # [id number] 32 SEE RESULT BELOW Name: RIDDHIMARIA GUADALUPE : [address]: Aidan Canseco Acct: [id number] Unit: [id number] AGE: 28 Location: ED Re07/10/14 SEX: F Status: DEP ER SPEC: [id number] ALEXA: 07/10/[address]: Aidan Ro DO REQ: [id number] RECD: 07/10/14 STATUS: C[facility] DR: Jose Hutton MD _ SOURCE: URINE SPDESC: ORDERED: Urine Culture Procedure Result Verified Site Urine Culture Final 07/12/14- 0838 ML Organism 1 ESCHERICHIA COLI [place] Count >100,000 (Many) CFU/ML 1. ESCHERICHIA COLI M.I.C. RX --------- ------ Ampicillin <=2 S Cefazolin <=4 S Cefepime <=1 S Ceftriaxone <=1 S Ciprofloxacin <=0.25 S Gentamicin <=1 S Levofloxacin <=0.12 S Meropenem <=0.25 S Nitrofurantoin <=16 S Tetracycline <=1 S Pipercillin/Tazobactam <=4 S Trimethoprim/Sulfamethoxazole <=20 S Amoxicillin/Clavulanic Acid <=2 S Aztreonam <=1 S Contact the Microbiology Department for any additional antibiotic reporting. * ML - MAIN LAB ([facility]) . END OF REPORT * ML=Testing performed at Main Lab DEPARTMENT OF PATHOLOGY, [address] [place] [address] Byron Anthony M.D. Director [facility] # [id number] 33 Female urine specimens have been self-validated by [facility] and have been granted conditional assay approval by [facility]. 34 Because ethnic data is not always readily available, this report includes an eGFR for both -Americans and non- Americans. The National Kidney Disease Education Program (NKDEP) does not endorse the use of the MDRD equation for patients that are not between the ages of 18 and 70, are , have extremes of body size, muscle mass, or nutritional status, or are non- or non-. According to the National Kidney Foundation, irrespective of diagnosis, the stage of the disease is based on the level of kidney function: Stage Description GFR(mL/min/1.73 m(2)) 1 Kidney damage with normal or decreased GFR 90 2 Kidney damage with mild decrease in GFR 60-89 3 Moderate decrease in GFR 30-59 4 Severe decrease in GFR 15-29 5 Kidney failure <15 (or dialysis) 35 REFERENCE VALUE <4.0 (Negative) Test Performed by: [place] [address] [employer] Attendant: Monroe Warren II, M.D., Ph.D. 36 Negative serology. Celiac disease unlikely. However, approximately 10% of patients with celiac disease are seronegative. Also, patients who are already adhering to a gluten-free diet may be seronegative. If celiac disease is highly clinically suspected, consider HLA-DQ typing. Test Performed by: [place] [address] [employer] Attendant: Monroe Warren II, M.D., Ph.D. 37 Because ethnic data is not always readily available, this report includes an eGFR for both -Americans and non- Americans. The National Kidney Disease Education Program (NKDEP) does not endorse the use of the MDRD equation for patients that are not between the ages of 18 and 70, are , have extremes of body size, muscle mass, or nutritional status, or are non- or non-. According to the National Kidney Foundation, irrespective of diagnosis, the stage of the disease is based on the level of kidney function: Stage Description GFR(mL/min/1.73 m(2)) 1 Kidney damage with normal or decreased GFR 90 2 Kidney damage with mild decrease in GFR 60-89 3 Moderate decrease in GFR 30-59 4 Severe decrease in GFR 15-29 5 Kidney failure <15 (or dialysis) 38 Acute inflammation: >10.00 39 This test detects intact HCG only and is indicated for the early detection of . 40 RUN DATE: 12/08/13 [facility] LAB LIVE PAGE 1 RUN TIME: [address] [place] [address] Specimen Inquiry Name: RIDDHIMARIA GUADALUPE : [address]: Hemanth Dangelo MD Acct: [id number] Unit: [id number] AGE: 28 Location: ED Re12/05/13 SEX: F Status: DEP ER SPEC: [id number] ALEXA: 12/05/13 [facility] DR: Hemanth Dangelo MD REQ: [id number] RECD: 12/05/13 STATUS: [facility] DR: Jose Hutton MD _ SOURCE: URINE SPDESC: ORDERED: Urine Culture Procedure Result Verified Site Urine Culture Final 12/08/13- 1322 ML Organism 1 NORMAL LEW [place] Count 25-50,000 (Moderate) CFU/ML END OF REPORT * ML=Testing performed at Main Lab DEPARTMENT OF PATHOLOGY, [facility] [employer] [place], [place] [address] Byron Anthony M.D. Director [facility] # [id number] 41 Because ethnic data is not always readily available, this report includes an eGFR for both -Americans and non- Americans. The National Kidney Disease Education Program (NKDEP) does not endorse the use of the MDRD equation for patients that are not between the ages of 18 and 70, are , have extremes of body size, muscle mass, or nutritional status, or are non- or non-. According to the National Kidney Foundation, irrespective of diagnosis, the stage of the disease is based on the level of kidney function: Stage Description GFR(mL/min/1.73 m(2)) 1 Kidney damage with normal or decreased GFR 90 2 Kidney damage with mild decrease in GFR 60-89 3 Moderate decrease in GFR 30-59 4 Severe decrease in GFR 15-29 5 Kidney failure <15 (or dialysis) 42 This test detects intact HCG only and is indicated for the early detection of . 43 RUN DATE: 10/26/13 [facility] LAB LIVE PAGE 1 RUN TIME: 844 [facility] [employer] [place], [place] [address] Specimen Inquiry Name: MARIA GUADALUPE PHAM : [address]: Tessa Canseco Acct: [id number] Unit: [id number] AGE: 28 Location: [facility] Re10/23/13 SEX: F Status: DEP ER SPEC: [id number] ALEXA: 10/23/13 [facility] [address]: Tessa Moon DO REQ: [id number] RECD: 10/24/13-1108 STATUS: C[facility] DR: [facility] Jose Hutton MD _ SOURCE: URINE SPDESC: ORDERED: Urine Culture Procedure Result Verified Site Urine Culture Final 10/26/13- 0845 ML Organism 1 ESCHERICHIA COLI [place] Count 75-100,000 (Many) CFU/ML 1. ESCHERICHIA COLI M.I.C. RX --------- ------ Ampicillin 4 S Cefazolin <=4 S Cefepime <=1 S Ceftriaxone <=1 S Ciprofloxacin <=0.25 S Gentamicin <=1 S Levofloxacin <=0.12 S Meropenem <=0.25 S Nitrofurantoin <=16 S Tetracycline <=1 S Pipercillin/Tazobactam <=4 S Trimethoprim/Sulfamethoxazole <=20 S Amoxicillin/Clavulanic Acid 4 S Aztreonam <=1 S Contact the Microbiology Department for any additional antibiotic reporting. END OF REPORT * ML=Testing performed at Main Lab DEPARTMENT OF PATHOLOGY, [facility] [employer] [place] [address] Byron Anthony M.D. Director [facility] # [id number] 44 RUN DATE: 09/19/13 [facility] LAB LIVE PAGE 1 RUN TIME: 9357 [facility] [employer] [place], [place] [address] Specimen Inquiry Name: MARIA GUADALUPE PHAM : [address]: Orin Easton MD Acct: [id number] Unit: [id number] AGE: 28 Location: [facility] Re09/17/13 SEX: F Status: REG REF SPEC: [id number] ALEXA: 09/17/13-[address] [facility] [address]: Orin Easton MD REQ: [id number] RECD: 09/17/13276 STATUS: COMP _ SOURCE: THROAT SPDESC: ORDERED: Throat Culture QUERIES: [employer] Number [id number] Procedure Result Verified Site Throat Culture Final 09/19/13- 1247 ML Organism 1 NORMAL LEW Quantity 2+ END OF REPORT * ML=Testing performed at Main Lab DEPARTMENT OF PATHOLOGY, [address] [place] [address] Byron Anthony M.D. Director [facility] # [id number] 45 Results suggest response to immunization or prior exposure to the virus. -- REFERENCE VALUE -- Vaccinated: Positive Unvaccinated: Negative 46 Test Performed by: [address] [address] [employer] Attendant: Scotty Garcia III, M.D. 47 Results suggest response to immunization or prior exposure to the virus. -- REFERENCE VALUE -- Vaccinated: Positive Unvaccinated: Negative 48 Test Performed by: [facility] [place] [address] [employer] Attendant: Scotty Garcia III, M.D. 49 Results suggest response to immunization or prior exposure to the virus. -- REFERENCE VALUE -- Vaccinated: Positive Unvaccinated: Negative 50 Test Performed by: [facility] - [address] [address] [employer] Attendant: Scotty Garcia III, M.D. 51 RUN DATE: 08/18/12 [facility] LAB LIVE PAGE 1 RUN TIME: [address] [place] [address] Specimen Inquiry Name: MARIA GUADALUPE PHAM : [address]: Danielle Banuelos NP Acct: [id number] Unit: [id number] AGE: 27 Location: [facility] Re08/16/12 SEX: F Status: REG REF SPEC: [id number] ALEXA: 08/16/12-[address]: Danielle Banuelos NP REQ: [id number] RECD: 08/16/12 STATUS: COMP _ SOURCE: THROAT SPDESC: ORDERED: Throat Beta Str QUERIES: [employer] Number [id number] Procedure Result Verified Site Throat Beta Strep Culture Final 08/18/12- 816 ML Negative For Group A Beta Streptococcus END OF REPORT * ML=Testing performed at Main Lab DEPARTMENT OF PATHOLOGY, [address] [place] [address] Byron Anthony M.D. Director [facility] Permit #[id number] ---- RUN DATE: 11/15/[address] [facility] NMI LIVE PAGE 1 RUN TIME: 1504 Specimen Inquiry RUN USER: INTERFACE -- Name: MARIA GUADALUPE PHAM Status: REG REF Re11/12/10 Age/Sex: 25/F Unit#: [id number] Location: [facility].B. : 84 -- Specimen: [id number] SOUT Spec Date: 11/12/[address]: Rayray holguin MD Spec Type: SURGICAL P Received: 11/12/10-1400 Copies to: Jose ferrera MD SPECIMEN LEFT CALF LESION HISTORY CLINICAL INFORMATION: No history given. GROSS DESCRIPTION The specimen is received in formalin labelled Maria Guadalupe Pham, Left Calf Lesion, and consists of a punch skin specimen with a brown skin measuring 0.3 x 0.3 x 0.3 cm. Submitted entirely, one cassette. DIAGNOSIS Skin, left calf, punch biopsy: Benign, predominantly intradermal melanocytic nevus. Signed Electronically by: BYRON ANTHONY MD 11/15/10 1458 -- -- DEPARTMENT OF PATHOLOGY, [address] [place] [address] [facility] Permit #[id number] Byron Anthony M.D. Director Julianne Wisdom M.D. Linen Clerk Dir katherine -- Procedures Date CPT Code Description Status 08/01/2016 Injection, Carpal Tunnel Completed 10/06/2009 43289 Rad Exam; Fingers Completed 09/29/2009 41642 Rad Exam; Fingers Completed 09/29/2009 33268 FX Phalangeal Shaft With Manipulation Completed Encounters Type Date Location Provider CPT E/M Dx Office Visit 07/06/2017 9:20a [facility] Elan Camara, [place] [address] M51.16 Nayeli M54.2 Office Visit 02/22/2017 10:30a [facility] France Yadav, [place] [address] [address]03.[address] S70.01xA S70.01xD Office Visit 10/20/2016 8:20a [facility] Jose Hutton, [address] E03.9 - [place] Harvinder Miles,FACP G43.109 E04.2 M54.32 Office Visit 08/01/2016 9:45a [facility] Augusta Estrada, [address]354 G56.01 Of Kathe Miles Office Visit 05/13/2016 1:00p [facility] Bossman Forrester, [place] [address] J00 - [address] Office Visit 02/12/2016 11:40a [facility] Jose Hutton, [address] E03[address] - [address] Ginger,FACP O00.01 F31.32 Office Visit 12/17/2015 11:10a [facility] Jose Hutton, [address] E03.[address] - [address] Ginger,FACP O00.01 O12.11 Z23 Office Visit 11/03/2015 4:20p [facility] Jose Hutton, 77171 Z02.1 - Nayeli Miles,FACP E03.9 Office Visit 09/18/2015 4:20p [facility] Jose Hutton, [address]85 M51.17 Medicine - [address] Ginger,FACP G43.109 E03.9 Office Visit 09/10/2015 10:30a [facility] Services Augusta Estrada, 70507 G56.01 Of Kathe Miles S63.511A M25.531 Office Visit 08/25/2015 3:00p [facility] - Bossman Forrester, [place] [address] M25.531 Z11.1 Office Visit 07/10/2015 11:00a [facility] - Bossman Forrester, [place] [address] J45.40 Office Visit 05/04/2015 1:40p [facility] - Bossman Forrester, [place] [address] R05 Office Visit 01/28/2015 11:00a [facility] - Rayray Hand, [place] [address] R10.84 [place] M54.5 Office Visit 01/13/2015 10:50a [facility] Jose Hutton, [address] J02.9 - Nayeli Miles,FACP Office Visit 10/28/2014 11:00a [facility] Rayray Hand, [place] [address] 465.8 - [place] 465.9 Office Visit 10/01/2014 1:30p [facility] [place] [address] 708.1 [place] 708.9 Office Visit 07/31/2014 9:40a [facility] - Rayray Hand, [place] [address] 784.1 [place] 462 Office Visit 07/25/2014 4:40p [facility] Jose Hutton, 67987 575.0 - [place] Blanton M.D.,FACP Office Visit 07/10/2014 10:40a [facility] Rayray Hand, [place] [address] 789.07 - [place] 789.05 Office Visit 04/14/2014 1:00p [facility] - Bossman Forrester, [place] [address] 244.9 787.3 V74.1 Office Visit 12/24/2013 10:00a [facility] - Rayray Hand, [place] [address] 805.6 [place] 709.8 V54.19 Office Visit 12/16/2013 11:00a [facility] Bossman Forrester, [place] [address] 805.6 - [place] Office Visit 12/06/2013 2:00p [facility] Jose Hutton, 86863 805.6 - Nayeli Miles,FACP Office Visit 10/23/2013 11:30a [facility] Rayray Hand, [place] [address] 493.92 - [place] Office Visit 09/17/2013 10:20a [facility] Orin Easton M.D. 61199 462 - [place] 241.1 Office Visit 09/13/2012 2:30p [facility] Danielle Banuelos N.P. 59489 V70.0 - [place] 493.00 244.9 346.10 241.1 296.89 789.00 Office Visit 08/16/2012 4:30p [facility] - Danielle Banuelos N.P. 77856 462 [place] 995.3 493.00 Office Visit 05/09/2012 4:00p [facility] Jose Hutton, 74648 244.9 - Nayeli Miles,FACP 346.10 780.79 296.89 241.1 Office Visit 11/10/2011 2:30p [facility] Danielle Banuelos N.PRefugio 23829 V04.81 - [place] 525.8 Office Visit 06/24/2011 9:30a [facility] Danielle Lakisha, N.P. 16992 244.9 - [place] 646.93 Office Visit 06/08/2011 11:00a [facility] Joy PalmaKathy, [address] 382.9 Medicine - N.P. [place] Office Visit 05/20/2011 11:00a [facility] Jose Hutton, 25498 244.9 [facility] M.Mike,FACP [place] 646.93 241.0 Office Visit 03/15/2011 4:30p [facility] Danielle Lakisha, N.P. 72958 244.9 - [place] 346.10 Office Visit 11/10/2010 12:10p DO Not Use Credit Rating Inspector AT Jose Hutton, 03586 381.04 [facility] 346.10 238.2 V04.81 Office Visit 08/03/2010 1:40p DO Not Use Credit Rating Inspector AT Jose Hutton, 79827 244.9 Kala Miles,FACP 646.93 301.4 493.00 Office Visit 05/18/2010 11:20a DO Not Use Credit Rating Inspector AT Jose Hutton, 31057 346.10 Kala Miles,[facility] 244.9 646.93 301.4 Office Visit 03/16/2010 8:20a DO Not Use Credit Rating Inspector AT [facility], [address] 346.10 [place] Miles 244.9 Plan of Care Future Appointment(s):08/24/2017 11:00 am - Jose Hutton M.D.,FACP at [facility] - [address]08/11/2017 - Omid Pham, FNPR10.13 Epigastric painNew Medication:Famotidine 40 mgComments:Please continue on Omeprazole and will add famotidine to your regime.Please keep office with GIFollow up:keep OV with Dr. Lagos21.9 Gastro-esophageal reflux disease without esophagitisComments: Eat smaller helpings and do not lie down for one-two hours after eating. Elevate the head of the bedby raising the mattress but do not use extra pillows because this bends your body and compresses thestomach. Avoid tight fitting clothing. I advise you to avoid food triggers. These include: Spicy, greasy, and acidic foods, along with coffee and alcohol.
[2017-08-19 11:10] VITALS: BP 108/68
--- NOTE | 2017-08-19 11:52 | UC ---
Abdominal Pain Female HPI - HPI Summary HPI Summary: 32 yo female presents with epigastric pain and nausea for the last 5 weeks. She has been seen for this by her PCP, OBGYN, and GI and has been started on carafate, PPIs, and two H2 blockers for suspected gastric ulcers. She is not able to undergo any imaging as she is about 10 weeks . Her pain is worse with lifting and eating/drinking acidic foods. She has had a stomach ulcer in the past in 2008 and this feels the same. Over the last few months she admits to taking more than advised tylenol and ibuprofen due to lower back pain. No vomiting, constipation, diarrhea, dysuria, vaginal discharge or bleeding. Denies fever or chills. - History of Current Complaint Chief Complaint: UCAbdominalPain Stated Complaint: ABDOMINAL PAIN Time Seen by Provider: 08/19/17 11:51 Hx Obtained From: Patient Hx Last Menstrual Period: 11/10/15 Onset/Duration: Sudden Onset Severity Initially: Severe Severity Currently: Severe Pain Intensity: 10 Pain Scale Used: 0-10 Numeric Allergies/Adverse Reactions: Allergies Allergy/AdvReac Type Severity Reaction Status Date / Time Adhesive Tape Allergy Rash Verified 08/19/17 11:11 prochlorperazine Allergy Swelling Verified 08/19/17 11:11 [From Compazine] Of Face,Lips,& Throat sumatriptan [From Imitrex] Allergy See Comment Verified 08/19/17 11:11 [employer]ERS Allergy Nausea And Uncoded 08/19/17 11:11 Vomiting Home Medications: Home Medications Cetirizine* [ZyrTEC 10 MG TAB*] 10 mg PO DAILY 08/19/17 [History Confirmed 08/19] Famotidine 40 mg PO 08/19/17 [History] Montelukast Sodium TAB* [Singulair TAB*] 10 mg PO DAILY 08/19/17 [History Confirmed 08/19/17] Ranitidine TAB (NF) [Zantac TAB (NF)] 08/19/17 [History] Sucralfate [Carafate] 1 gm PO QID 08/19/17 [History Confirmed 08/19/17] PMH/Surg Hx/FS Hx/Imm Hx Endocrine History: Hypothyroidism Respiratory History: Asthma Psychological History: Bipolar Disorder - Surgical History Surgical History: None - Family History Known Family History: Negative: Cardiac Disease, Hypertension, Diabetes, Renal Disease - Social History Occupation: Employed Full-time Lives: With Family Alcohol Use: None Substance Use Type: None Smoking Status (MU): Former Smoker - Immunization History Most Recent Influenza Vaccination: none Most Recent Pneumonia Vaccination: none Review of Systems Constitutional: Negative Skin: Negative Respiratory: Negative Cardiovascular: Negative Gastrointestinal: Abdominal Pain, Nausea Genitourinary: Negative Neurovascular: Negative Neurological: Negative Psychological: Negative All Other Systems Reviewed And Are Negative: Yes Physical Exam - Summary Physical Exam Summary: GENERAL: NAD. WDWN. No pain distress. SKIN: No rashes, sores, lesions, or open wounds. NECK: Supple. Nontender. No lymphadenopathy. CHEST: CTAB. No r/r/w. No accessory muscle use. Breathing comfortably and in no distress. CV: RRR. Without m/r/g. Pulses intact. Brisk cap refill. ABDOMEN: Moderate TTP epigastrum. Soft. No distention or guarding. No organomegaly. No CVA tenderness. Bowel sounds present NEURO: Alert. CN II-XII grossly intact. PSYCH: Age appropriate behavior. Triage Information Reviewed: Yes Vital Signs: Initial Vital Signs Temp 98.9 F 08/19/17 11:04 Pulse 81 08/19/17 11:04 Resp 18 08/19/17 11:04 BP 108/68 08/19/17 11:04 Pulse Ox 100 08/19/17 11:04 Abd Pain Female Course/Dx - Course Course Of Treatment: She has seen her PCP, OBGYN, and GI for this same pain and admits that she is seeing as many providers as possible trying to find an answer. I told her that I am unsure the cause of her pain, she may or may not have an ulcer - if so, she is on the appropriate treatment. I will refer her to Dr. Moon for osteopathic care as pt is and medication/imaging options are very limited. - Differential Dx/Diagnosis Provider Diagnoses: Epigastric pain Discharge - Sign-Out/Discharge Documenting (check all that apply): Discharge/Admit/Transfer - Discharge Plan Condition: Stable Disposition: HOME Forms: *Work Release Referrals: Jose Hutton MD [Primary Care Provider] - Tessa Moon DO [Emergency Provider] - As Soon As Possible Additional Instructions: If you develop a fever, shortness of breath, chest pain, new or worsening symptoms - please call your PCP or go to the ED. Please call Dr. Moon at the number below to schedule a follow up appointment as soon as possible - Billing Disposition and Condition Condition: STABLE Disposition: Home
== END 2017-08-19 12:16 | disposition home or self-care (01) ==
LOC: UCEAST 11:00
DX: O26.891 Other specified pregnancy related conditions, first trimester (principal); R10.13 Epigastric pain; R11.0 Nausea; Z91.09 Other allergy status, other than to drugs and biological substances; Z88.8 Allergy status to other drugs, medicaments and biological substances; Z91.02 Food additives allergy status; Z3A.10 10 weeks gestation of pregnancy
CPT/HCPCS: 99211; G0463

== ENCOUNTER 2018-03-07 17:56 | Inpatient (IN) | payer OTHER ==
[2018-03-07] MEDS ORDERED: Dinoprostone* 10 MG VAG.SUPP VAGINAL ONE (18:12)
[2018-03-07] MEDS ORDERED: Buffered Lidocaine 1% SYRIN* 1 ML/SYRINGE INTRADERM ONE (18:12)
[2018-03-07] MEDS ORDERED: Lactated Ringers 1000 ML Bag* 1,000 ML IV ONE (18:12)
[2018-03-07] MEDS ORDERED: Penicillin G Potassium IV* 5,000,000 UNITS in NS 0.9% 100 ML* 100 ML IVPB ONE (18:12)
--- NOTE | 2018-03-07 18:23 | HP ---
General Information - General Information Maternal Age: 32 Grav: 7 Para: 5 SAB: 1 IEA: 0 Estimated Due Date: 03/05/18 Determined By: Early Ultrasound Maternal Blood Type and Rh: O Positive - Results this Serology/RPR Result: Non-Reactive Rubella Result: Immune HBsAg Result: Negative HIV Result: Negative GBS Culture Result: Positive Exam Allergies/Adverse Reactions: Allergies Adhesive Tape Allergy (Verified 02/27/18 18:48) Rash aspartame [From Nutrasweet Aspartame] Allergy (Verified 02/28/18 08:53) Nausea And Vomiting Any artificial sweetner causes N/V prochlorperazine [From Compazine] Allergy (Verified 02/27/18 18:48) Swelling Of Face,Lips,& Throat sumatriptan [From Imitrex] Allergy (Verified 02/27/18 18:48) See Comment "burning in head" - Measurements Height: 5 ft 4.5 in Weight: 194 lb Weight in lbs: 194.229954 Body Mass Index (BMI): 32.8 Pre- Weight: 164 lb Weight Gained This : 30 lbs and 0 ozs
--- NOTE | 2018-03-07 18:24 | HP ---
General Information - Reason for Visit FT, Grandmultip, hx of precipitous labors, oligohydramnios - General Information Maternal Age: 32 Grav: 7 Para: 5 SAB: 1 IEA: 0 Estimated Due Date: 03/05/18 Determined By: Early Ultrasound Maternal Blood Type and Rh: O Positive - Results this Serology/RPR Result: Non-Reactive Rubella Result: Immune HBsAg Result: Negative HIV Result: Negative GBS Culture Result: Positive Past Medical History Delivery History: Hx Uncomplicated Vaginal Delivery Pertinent Past Medical History: See Records - hypothyroidism, migraines with aura Pertinent Past Surgical History: None Pertinent Family History: See Records - uterine CA, CVD, HTN, stroke, DM, thyroid, lung CA, bleeding disorder, ovarian CA - Antepartal Records Antepartal Records: Reviewed, Complicated by: - GBS +, migraines w aura, hypothyroidism Review of Systems Constitutional: Comfortable CV Complaint: No Respiratory: Shortness of Breath: No Gastrointestinal: No Nausea/Vomiting, Normal Bowel Movement Genitourinary: No Dysuria, No Bleeding, No Leaking Fluid, Spotting Musculoskeletal: No Complaint, No Epigastric Pain Neurological: No Headache, No Visual Changes Movement: Normal Exam Allergies/Adverse Reactions: Allergies Adhesive Tape Allergy (Verified 02/27/18 18:48) Rash aspartame [From Nutrasweet Aspartame] Allergy (Verified 02/28/18 08:53) Nausea And Vomiting Any artificial sweetner causes N/V prochlorperazine [From Compazine] Allergy (Verified 02/27/18 18:48) Swelling Of Face,Lips,& Throat sumatriptan [From Imitrex] Allergy (Verified 02/27/18 18:48) See Comment "burning in head" T:99%, P:98, R:20, BP: 128/80, O2:100 - Measurements Height: 5 ft 4.5 in Weight: 194 lb Weight in lbs: 194.303615 Body Mass Index (BMI): 32.8 Pre- Weight: 164 lb Weight Gained This : 30 lbs and 0 ozs - Exam Breast: Breast Exam Deferred CVA: No CVA Tenderness Extremities: No Edema Heart: Normal Rhythm/Heart Sounds HEENT: No Significant Findings Lungs: Clear Bilaterally Rectal: Rectal Exam Deferred Reflexes: DTR 2+ Thyroid: No Thyromegaly - Abdominal Exam Abdomen Exam: Non-Tender Abdomen Exam Comment: 37cm - Ultrasound/Biophysical Profile Ultrasound Status: Not Done Targeted Exam Findings Estimated Weight: 8lbs Cervical Exam: 2cm Effacement: 60% Station: -2 Presenting Part: Vertex Membrane Status: Intact Bleeding/Discharge: Bloody Show EFM Findings - External Monitor Findings Baseline Heart Rate: 145 External Monitor Findings: Accelerations Present, No Pattern of Variable or Late Decelerations, Variability Moderate, Baseline Stable Contractions: Irregular, Mild, < 45 Seconds Assessment/Plan - Assessment 32 y.o. , oligohydramnios, cervical ripening - Obstetrical Risk Factors Obstetrical Risk Factors: GBS Positive - Plan Plan: Cervical Ripening - Date/Time of Admission Date of Admission: 03/07/18 Time of Admission: 18:30
[2018-03-07] MEDS ORDERED: Lactated Ringers 1000 ML Bag* 1,000 ML IV SCH (19:00)
--- NOTE | 2018-03-08 09:10 | PN ---
Progress Note - Progress Note Date of Service: 03/08/18 SOAP: Subjective: [Pt reports ctx that are painful, but not increasing in intensity. Pt denies LOF, denies VB, reports +FM.] Objective: [FHT: 125 bpm, +accels, -decels, moderate variability, ctx q 2-5min. No current vitals] Assessment: [32 y.o. , 40w 3d EGA, induction of labor grandmultip with hx of precipitous labors, GBS +] Plan: [1) leave cervidil in place 2) Start GBS prophylaxis 3) Repeat vital signs 4) Reevaluate in 3 hours or sooner PRN, 5) Plan to start pitocin augmentation if no active labor.]
[2018-03-08 10:24] LABS: ABS Basophils 0 10^3/ul (0-0.2); ABS Eosinophils 0.2 10^3/ul (0-0.6); ABS Lymphocytes 1.6 10^3/ul (1.0-4.8); ABS Monocytes 0.5 10^3/ul (0-0.8); ABS Neutrophils 7.9 10^3/ul (1.5-7.7); ABS Nucleated RBC 0 10^3/ul; Eosinophil % 1.5 %; Hematocrit 40 % (35-47); Hemoglobin 13.4 g/dl (12.0-16.0); Lymphocyte % 15.3 %; Mean Corpuscular HGB Conc 34 g/dl (31-36); Mean Corpuscular Hemoglobin 29 pg (27-31); Mean Corpuscular Volume 85 fL (80-97); Mean Platelet Volume 8.1 fL (7.4-10.4); Nucleated Red Blood Cells % 0.1; Platelet Count 176 10^3/ul (150-450); Red Cell Distribution Width 14 % (10.5-15); White Blood Count 10.2 10^3/ul (3.5-10.8)
[2018-03-08] MEDS ORDERED: OBEPIDURAL* 250 ML EPIDURAL ONE (11:11)
[2018-03-08] MEDS ORDERED: Phenylephrine IV* 40 MCG/ML 10 ML SYRINGE ONE (11:18)
[2018-03-08] MEDS ORDERED: Sodium Citrate/Citric Acid* 15 ML UDC PO PRN (11:40)
[2018-03-08] MEDS ORDERED: Famotidine TAB* 20 MG PO PRN (11:40)
[2018-03-08] MEDS ORDERED: Lactated Ringers 1000 ML Bag* 1,000 ML IV ONE (11:40)
[2018-03-08] MEDS ORDERED: EPHEDrine (Pressors)* 50 MG/ML VIAL IV PUSH PRN (11:40)
[2018-03-08] MEDS ORDERED: Phenylephrine IV* 40 MCG/ML 10 ML SYRINGE IV PUSH PRN (11:40)
[2018-03-08] MEDS ORDERED: Lactated Ringers 1000 ML Bag* 1,000 ML IV SCH ×2 (12:00→17:00)
[2018-03-08] MEDS ORDERED: OBEPIDURAL* 250 ML EPIDURAL SCH (12:00)
--- NOTE | 2018-03-08 13:52 | PN ---
Progress Note - Progress Note Date of Service: 03/08/18 SOAP: Subjective: [Pt reports comfort with epidural that more effective on the left than the right. -LOF, -VB, +FM.] Objective: [BP:115/74, P:86, R:18, T:97.9, FHT: 130 baseline, + accels, -decels, moderate variability, ctx q 2-8, moderate irregular. cervix: 4/70/-2.] Assessment: [32 y.o. , Induction of labor] Plan: [1) Pitocin augmentation, reviewed R/B and pt agrees to continue. 2) Anticipate vaginal delivery]
[2018-03-08] MEDS ORDERED: Oxytocin in LR* 20 UNITS/1,000 ML BAG IVPB ONE (13:56)
[2018-03-08] MEDS ORDERED: Oxytocin in LR* 20 UNITS/1,000 ML BAG IVPB SCH ×2 (14:00→17:00)
[2018-03-08] MEDS ORDERED: Penicillin G Potassium IV* 2,500,000 UNITS in NS 0.9% 100 ML* 100 ML IVPB SCH (14:30)
[2018-03-08] MEDS ORDERED: Witch Hazel PAD* JAR TOPICAL PRN (16:49)
[2018-03-08] MEDS ORDERED: Misoprostol TAB* 200 MCG PR ONE (16:49)
[2018-03-08] MEDS ORDERED: Acetaminophen TAB* 325 MG PO PRN (16:49)
[2018-03-08] MEDS ORDERED: Dibucaine 1% 28.35 GM TUBE PR PRN (16:49)
[2018-03-08] MEDS ORDERED: Glycerin ADULT SUPP PR PRN (16:49)
--- NOTE | 2018-03-08 16:49 | PROCNOTE ---
[facility] OB: Delivery Note - Delivery A Date of : 03/08/18 Time of : 16:37 Sex: Female Score 1 Minute: 9 Score 5 Minutes: 9 Gestational Age in Weeks and Days at Delivery: 40 Weeks and 3 Days Delivery Method: Spontaneous Vaginal Labor: Induced Amniotic Fluid: Clear Estimated Blood Loss: 200 Anesthesia/Analgesia: CEI for Labor Delivered By: Araceli Wells - Nursery Level of Nursery: Regular/Bedside - Perineum Perineal Injury: None/Intact Perineal Repair: None - Events Delivery Events of Note: Pitocin During Labor, Supplemental O2 to Mother
[2018-03-08] MEDS ORDERED: Simethicone TAB* 80 MG TAB.CHEW PO SCH (17:30)
[2018-03-08] MEDS: Docusate CAP* 100 MG PO SCH (21:00)
[2018-03-08] MEDS: Ibuprofen TAB* 600 MG PO PRN (21:07)
[2018-03-09] MEDS: Ibuprofen TAB* 600 MG PO PRN ×3 (06:57→18:09)
[2018-03-09 07:07] LABS: ABS Basophils 0 10^3/ul (0-0.2); ABS Eosinophils 0.2 10^3/ul (0-0.6); ABS Lymphocytes 2.2 10^3/ul (1.0-4.8); ABS Neutrophils 10.5 10^3/ul (1.5-7.7); ABS Nucleated RBC 0 10^3/ul; Eosinophil % 1.3 %; Hematocrit 35 % (35-47); Hemoglobin 12.1 g/dl (12.0-16.0); Lymphocyte % 16.1 %; Mean Corpuscular HGB Conc 35 g/dl (31-36); Mean Corpuscular Hemoglobin 29 pg (27-31); Mean Corpuscular Volume 84 fL (80-97); Nucleated Red Blood Cells % 0; Platelet Count 179 10^3/ul (150-450); Red Blood Count 4.17 10^6/ul (4.00-5.40); Red Cell Distribution Width 14 % (10.5-15); White Blood Count 13.9 10^3/ul (3.5-10.8)
[2018-03-09] MEDS: Docusate CAP* 100 MG PO SCH ×3 (08:21→15:25)
[2018-03-09] MEDS ORDERED: Ferrous Gluconate TAB* 324 MG TAB PO SCH (09:00)
[2018-03-10] MEDS: Ibuprofen TAB* 600 MG PO PRN ×2 (00:39→07:52)
[2018-03-10] MEDS: Docusate CAP* 100 MG PO SCH ×2 (00:41→10:30)
[2018-03-10] MEDS ORDERED: Levothyroxine TAB* 112 MCG TAB PO SCH (06:00)
[2018-03-10 11:57] VITALS: BP 120/86
== END 2018-03-10 12:00 | disposition home or self-care (01) | DRG 560 ==
LOC: MCHOBOUT 17:56 → MCHOB 18:44
PROVIDERS: ADMIT Midwife; ATTEND Midwife
PROC: 10E0XZZ Delivery of Products of Conception, External Approach (ICD-10-PCS; principal; 2018-03-08)
PROC: 3E033VJ Introduction of Other Hormone into Peripheral Vein, Percutaneous Approach (ICD-10-PCS; 2018-03-08)
PROC: 10907ZC Drainage of Amniotic Fluid, Therapeutic from Products of Conception, Via Natural or Artificial Opening (ICD-10-PCS; 2018-03-08)
DX: O48.0 Post-term pregnancy (principal); O41.03X0 Oligohydramnios, third trimester, not applicable or unspecified; Z37.0 Single live birth; O99.824 Streptococcus B carrier state complicating childbirth; O99.284 Endocrine, nutritional and metabolic diseases complicating childbirth; E03.9 Hypothyroidism, unspecified; O99.344 Other mental disorders complicating childbirth; F31.9 Bipolar disorder, unspecified; Z3A.40 40 weeks gestation of pregnancy
CPT/HCPCS: 36415; 85025; 86850; 86900; 86901; A9270-GY; J2540

== ENCOUNTER 2018-09-17 11:39 | Emergency (ER) | payer MEDICAID, OTHER ==
[2018-09-17 11:48] VITALS: BP 112/72
--- NOTE | 2018-09-17 12:13 | UC ---
- HPI Summary HPI Summary: 33 yo female presents with needle stick to her left finger. She tells me that she was giving an allergy injection with a 25G needle and accidentally stuck her left middle finger after giving the injection. The area bled and she washed it with soap, water, and bleach. She is unsure of the source pt's HIV/Hep status. They did give the source source pt labwork to complete, but pt does not feel confident that source pt will complete these labs. - History of Current Complaint Chief Complaint: UCBodyFluidExposure Stated Complaint: LT HAND STICK Time Seen by Provider: 09/17/18 12:13 Blood on Needle: Yes Depth of Needlestick: Scratch Bleeding at Site: Yes Body Fluid Exposure: Blood - Source Information HIV: Unknown Hepatitis: Unknown - Risk Factors Needlestick Risk Factor: Low Risk: Superficial Scratch PMH/Surg Hx/FS Hx/Imm Hx Endocrine History: Hypothyroidism Respiratory History: Asthma - Surgical History Surgical History: None - Family History Known Family History: Negative: Cardiac Disease, Hypertension, Diabetes, Renal Disease - Social History Occupation: Employed Full-time Lives: With Family Alcohol Use: None Substance Use Type: None Smoking Status (MU): Former Smoker - Immunization History Most Recent Influenza Vaccination: 11/15/17 Most Recent Pneumonia Vaccination: none Review of Systems All Other Systems Reviewed And Are Negative: Yes Constitutional: Positive: Negative Skin: Positive: Other - needlestick Respiratory: Positive: Negative Cardiovascular: Positive: Negative Neurovascular: Positive: Negative Neurological: Positive: Negative Psychological: Positive: Negative Physical Exam - Summary Physical Exam Summary: GENERAL: NAD. WDWN. No pain distress. SKIN: LEFT HAND: Volar middle finger at the proximal phalanx there is a 2.5mm superficial scratch - no deep puncture wound appreciated. No active bleeding or discharge. CHEST: No accessory muscle use. Breathing comfortably and in no distress. CV: Pulses intact. Cap refill <2seconds MSK: FROM at left middle finger NEURO: Alert. PSYCH: Age appropriate behavior. Triage Information Reviewed: Yes Vital Signs: Initial Vital Signs Temp 98 F 09/17/18 11:46 Pulse 77 09/17/18 11:46 Resp 16 09/17/18 11:46 BP 112/72 09/17/18 11:46 Pulse Ox 100 09/17/18 11:46 Vital Signs Reviewed: Yes Needlestick Course/Dx - Course Course Of Treatment: Pt washed the area with soap and water and wound appears low risk. Discussed PEP with pt and she declines at this time. POC urine negative. Will draw for HIV and Hepatitis and have her f/u with her Occ Med provider - Diagnoses Provider Diagnoses: Needlestick injury of finger Discharge - Sign-Out/Discharge Documenting (check all that apply): Patient Departure All imaging exams completed and their final reports reviewed: No Studies - Discharge Plan Condition: Stable Disposition: HOME Patient Education Materials: Needle Stick Injuries (ED), PEP Therapy (DC) Referrals: Jose Hutton MD [Primary Care Provider] - Additional Instructions: If you develop a fever, shortness of breath, chest pain, new or worsening symptoms - please call your PCP or go to the ED immediately. Please follow up with your PCP or employer Occupational Health for review of your labwork - Billing Disposition and Condition Condition: STABLE Disposition: Home - Attestation Statements Provider Attestation: Per institutional requirements, I have reviewed the chart, however, I was not consulted specifically or made aware of this patient by the midlevel provider. I did not personally evaluate, interact with , or disposition this patient.
[2018-09-17] MEDS ORDERED: Tetan/Diph/Pertus SYR(Tdap)* 0.5 ML SYR(BOOSTRIX) use SYR IM ONE (12:59)
[2018-09-17 19:33] LABS: Hepatitis B Surface Antigen Negative (Negative)
[2018-09-17 19:41] LABS: HIV 4th Generation Negative (Negative)
[2018-09-17 19:51] LABS: Hepatitis C Antibody Negative (Negative)
[2018-09-17 20:37] LABS: Hepatitis B Surface Ab Indeterminate (Immune)
--- NOTE | 2018-09-18 08:09 | UC ---
- Progress Note Progress Note: Pt neg HIV, neg, hep C neg B surface antigen Hep B antibody indeterminate- recommend f./u with Dr Jose fitzpatrick ? booster to hepatitis B vaccine please call pt with update Course/Dx - Diagnoses Provider Diagnoses: Needlestick injury of finger Discharge - Sign-Out/Discharge Documenting (check all that apply): Post-Discharge Follow Up All imaging exams completed and their final reports reviewed: No Studies - Discharge Plan Condition: Stable Disposition: HOME Patient Education Materials: Needle Stick Injuries (ED), PEP Therapy (DC) Referrals: Jose Hutton MD [Primary Care Provider] - Additional Instructions: If you develop a fever, shortness of breath, chest pain, new or worsening symptoms - please call your PCP or go to the ED immediately. Please follow up with your PCP or employer Occupational Health for review of your labwork - Billing Disposition and Condition Condition: STABLE Disposition: Home
== END 2018-09-17 13:05 | disposition home or self-care (01) ==
LOC: UCEAST 11:39
DX: Z77.21 Contact with and (suspected) exposure to potentially hazardous body fluids (principal); E03.9 Hypothyroidism, unspecified; J45.909 Unspecified asthma, uncomplicated; Z87.891 Personal history of nicotine dependence
CPT/HCPCS: 36415; 81025; 86706; 86803; 87340; 87389; 99211; G0463